=== PATIENT | female | born 1955 | race Caucasian/White ===

== ENCOUNTER 2017-08-31 05:52 | Observation (INO) | payer BC ==
[2017-08-30 09:32] LABS: BASOPHILS % 0.5 % (0.0-1.0); EOSINOPHILS # (AUTO) 0.1 (0.0-0.4); EOSINOPHILS % 0.9 % (0.0-6.0); HEMATOCRIT 39.1 % (34.2-44.1); HEMOGLOBIN 12.9 g/dL (12.0-16.0); LYMPHOCYTES # (AUTO) 1.5 (1.0-3.2); LYMPHOCYTES % 18.9 % (18.0-39.1); MEAN CORPUSCULAR HEMOGLOBIN 29.9 pg (28-32); MEAN CORPUSCULAR VOLUME 90.7 fL (81-99); MONOCYTES # (AUTO) 0.6 (0.2-0.8); MONOCYTES % 7.9 % (4.4-11.3); NEUTROPHILS # (AUTO) 5.7 (2.1-6.9); NEUTROPHILS % 71.4 % (38.7-80.0); PLATELET COUNT 276 x10e3/uL (140-360); RED BLOOD COUNT 4.31 x10e6/uL (3.6-5.1); RED CELL DISTRIBUTION WIDTH 13.4 % (11.7-14.4)
[2017-08-30 09:42] LABS: INR 0.86; PROTHROMBIN TIME 12.1 seconds (11.9-14.5)
[2017-08-30 09:43] LABS: PARTIAL THROMBOPLASTIN TIME 28.5 seconds (23.8-35.5)
[2017-08-30 09:49] LABS: ANION GAP 15.2 mmol/L (8-16); BLOOD UREA NITROGEN 13 mg/dL (7-26); BUN/CREATININE RATIO 15 (6-25); CALCIUM 9.6 mg/dL (8.4-10.2); CARBON DIOXIDE 27 mmol/L (22-29); CHLORIDE 106 mmol/L (98-107); CREATININE, SERUM 0.84 mg/dL (0.57-1.11); EST GLOMERULAR FILTRATION RATE > 60 ML/MIN (60-); GLUCOSE 80 mg/dL (74-118); POTASSIUM 4.2 mmol/L (3.5-5.1); SODIUM 144 mmol/L (136-145)
--- NOTE | 2017-08-30 11:31 | Diagnostic Imaging Report ---
PROCEDURE: Frontal and lateral views of the chest. COMPARISON: 08/05/15 INDICATIONS: PRE OPERATIVE CHEST X-RAY FOR BACK SURGERY FINDINGS: Lines/tubes: None. Lungs: The lungs are well inflated and clear. There is no evidence of pneumonia or pulmonary edema. Pleura: There is no pleural effusion or pneumothorax. Heart and mediastinum: The heart and the mediastinum are normal. Bones: No acute bony abnormality. IMPRESSION: 1. No acute cardiopulmonary disease. Dictated by: Parminder Goode M.D. on 08/30/2017 at 11:40 Electronically approved by: Parminder Goode M.D. on 08/30/2017 at 11:40
[~2017-08-31] VITALS: Ht 160 cm; Wt 64.4 kg
[~2017-08-31 05:52] MED LIST: CYMBALTA20 MG PO; LAMOTRIGINE25 M2 PO; PANTOPRAZOLE SO40 MG PO; PROZAC40 MG PO; VIVELLE-DOT1 EAC1 TD; ZOCOR20 MG PO
--- OUTSIDE RECORDS SUMMARY | 2017-08-31 05:54 | XMS REPORT ---
Author Author [facility] Address Unknown Phone Unavailable Care Team Providers Care Registered Veterinary Technician Name Role Phone GALA MUKHERJEE Unavailable Unavailable Problems This patient has no known problems. Allergies, Adverse Reactions, Alerts This patient has no known allergies or adverse reactions. Medications This patient has no known medications. Results Test Description Test Time Test Comments Text Results Atomic Results Result Comments CHEST 2 VIEWS [place] [address] Patient Name: HEAVENLY HERRERA MR #: [id number] : 1955 Age/Sex: 62/F Req #: [id number] Adm Physician: Ordered by: GALA MUKHERJEE MD Report #: [id number] Location: OR Room/Bed: Procedure: [id number] DX/CHEST 2 VIEWS Exam Date: 08/30/17 Exam Time: 0945 REPORT STATUS: Signed PROCEDURE: Frontal and lateral views of the chest. COMPARISON: 08/05/15 INDICATIONS: PRE OPERATIVE CHEST X- RAY FOR BACK SURGERY FINDINGS: Lines/tubes: None. Lungs: The lungs are well inflated and clear. There is no evidence of pneumonia or pulmonary edema. Pleura: There is no pleural effusion or pneumothorax. Heart and mediastinum: The heart and the mediastinum are normal. Bones: No acute bony abnormality. IMPRESSION: 1. No acute cardiopulmonary disease. Dictated by: Parminder Goode M.D. on 08/30/2017 at 11:40 Electronically approved by: Parminder Goode M.D. on 08/30/2017 at 11:40 Dictated By: PARMINDER GOODE MD [id number] Transcribed By: BC on 08/30/17 1140 COPY TO: GALA MUKHERJEE MD
[2017-08-31] MEDS ORDERED: GELATIN SPONGE SZ 100 ONE (06:45)
[2017-08-31] MEDS ORDERED: LIDOCAINE 1% W/EPINEPHRINE 20 ML VIAL ONE (06:45)
[2017-08-31] MEDS ORDERED: BACITRACIN 50,000 UNIT VIAL ONE (06:45)
[2017-08-31] MEDS ORDERED: THROMBIN FOR SOLN 5,000 UNIT VIAL ONE (06:45)
[2017-08-31] MEDS ORDERED: ACETAMINOPHEN 1000 MG/100 ML 100 ML IV ONE (07:11)
[2017-08-31] MEDS ORDERED: LIDOCAINE HCL (LTA) 4 ML SOLN ONE (07:11)
[2017-08-31] MEDS ORDERED: METOCLOPRAMIDE HCL 10 MG/2ML VIAL ONE (07:16)
[2017-08-31] MEDS ORDERED: FAMOTIDINE 20 MG/2 ML VIAL IV ONE (07:16)
[2017-08-31] MEDS ORDERED: SCOPOLAMINE 1.5 MG PATCH ONE (07:31)
[2017-08-31] MEDS ORDERED: VANCOMYCIN 1GM/NS 250 ML 250 ML ONE (07:32)
[2017-08-31] MEDS ORDERED: PROMETHAZINE HCL (IM) 25 MG/ML VIAL IM PRN (09:15)
[2017-08-31] MEDS ORDERED: MAGNESIUM/ALUMINUM/SIMETHICONE 30 ML UDC PO PRN (09:15)
[2017-08-31] MEDS ORDERED: ACETAMINOPHEN 325 MG TAB PO PRN (09:15)
[2017-08-31] MEDS ORDERED: CARISOPRODOL 350 MG TAB PO PRN (09:15)
[2017-08-31] MEDS ORDERED: MORPHINE SULFATE 5 MG/ML VIAL IM PRN (09:15)
[2017-08-31] MEDS ORDERED: CEPACOL SORE THROAT LOZENGES PO PRN (09:15)
[2017-08-31] MEDS ORDERED: OXYCODONE/ACETAMINOPHEN 5-325 1 EACH TABLET PO PRN (09:15)
[2017-08-31] MEDS ORDERED: ONDANSETRON HCL INJ 2 MG/ML VIAL IV PRN (09:15)
[2017-08-31] MEDS: HYDROMORPHONE 2MG/ML INJ IV PRN ×2 (10:56→23:26)
[2017-08-31] MEDS: LACTATED RINGER'S 1,000 ML IV SCH ×2 (11:00→16:38)
[2017-08-31 11:17] VITALS: BP 150/87
--- NOTE | 2017-08-31 11:22 | Operative Report ---
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 POSTOPERATIVE DIAGNOSIS: C6-7 spondylosis and disk herniation with radiculopathy, M50.123. PROCEDURES 1. C6-7 anterior cervical diskectomy, microsurgical osteophyte resection and allograft fusion, 18501. 2. Preparation of [employer] cortical cancellous allograft, 95388. 3. C6-7 anterior cervical plating with Synthes ZPN plate, 15778. ANESTHESIA: General. INDICATIONS: The patient is a woman who presents with C6-7 disk herniation, spondylosis and foraminal stenosis with left C7 radiculopathy. She was taken to the operating room for anterior cervical decompression and fusion. DETAILS OF PROCEDURE: After the induction of general anesthesia, the patient was placed on the operating table in the supine position. The right side of her neck was prepped and draped in a sterile fashion. The fluoroscopic C-arm was positioned in cross-table lateral orientation. A transverse incision was created on the right side of the neck superimposed on the C6-7 disk space as determined by fluoroscopy. The platysma was divided in line with the incision. A subplatysmal dissection was carried out. An avascular plane of dissection was developed medial to the sternocleidomastoid muscle and was followed medial to the carotid sheath to the anterior border of the cervical spine. The deep cervical fascia was opened. The esophagus was retracted to the left. The attachments of the longus coli muscles to the anterolateral aspects of the vertebral bodies of C6 and C7 were divided. The anterior longitudinal ligament was resected. Ray posts were inserted into C6 and C7. The Ray distractor was used to distract the disk space. The anterior annulus of the disk was incised a #11 blade. The contents of the disk were evacuated with angled curets and pituitary rongeurs. The posterior osteophytes were meticulously drilled with a 2-mm cutting bur on a high-speed drill until they were completely removed. The posterior annulus of the disk, herniated disk material, and the posterior longitudinal ligament were resected layer by layer until the dura was fully exposed and decompressed. The medial aspects of the uncinate processes were resected bilaterally to further expose and decompress the origins of the corresponding nerve roots. After satisfactory decompression had been achieved, the endplates were prepared for fusion. A piece of MTF cortical cancellous allograft measuring 8 mm in thickness was selected and prepared in saline and loaded onto a Synthes ZPN plate. The construct was inserted into the disk space under distraction and fluoroscopic guidance. The distraction was released, and the distraction posts were removed. The plates was screwed to the endplates of C6 and C7 with 2 pairs of 14-mm screws. All screws were locked. The wound was irrigated with Bacitracin solution and closed with 3-0 Vicryl suture and 4-0 Monocryl suture. Steri-Strips and dressing were applied. The patient was awakened and extubated in the postanesthesia care unit in stable condition. No intraoperative complications were encountered. Estimated blood loss was 10 mL. Job#: [id number]
[2017-08-31 11:38] VITALS: BP 148/83
[2017-08-31 15:22] VITALS: BP 125/71
[2017-08-31] MEDS: VANCOMYCIN 1GM/NS 250 ML 250 ML IV SCH (17:22)
[2017-08-31] MEDS ORDERED: DEXAMETHASONE SOD PHOS INJ 4 MG/ML VIAL ONE (18:24)
[2017-08-31] MEDS ORDERED: PROPOFOL IV EMULSION 10 MG/ML 20 ML VIAL ONE (18:24)
[2017-08-31] MEDS ORDERED: ONDANSETRON HCL INJ 2 MG/ML VIAL ONE (18:24)
[2017-08-31] MEDS ORDERED: ROCURONIUM BROMIDE 10 MG/ML 5ML VIAL ONE (18:24)
[2017-08-31] MEDS ORDERED: LIDOCAINE HCL 2% LOCAL INJ 5 ML SDV VIAL INJ ONE (18:24)
[2017-08-31] MEDS ORDERED: NEOSTIGMINE 5 MG/5ML SYR ONE (18:24)
[2017-08-31] MEDS ORDERED: GLYCOPYRROLATE INJ 1MG/ 5 ML SYR ONE (18:24)
[2017-08-31] MEDS ORDERED: SEVOFLURANE INHAL SOLN 250 ML PEN BTL ONE (18:24)
[2017-08-31] MEDS ORDERED: MIDAZOLAM HCL 2 MG/2 ML VIAL ONE (18:29)
[2017-08-31] MEDS ORDERED: FENTANYL CITRATE/PF 100MCG/2 ML INJ ONE (18:29)
[2017-08-31 19:10] VITALS: BP 111/69
[2017-08-31 19:55] VITALS: BP 111/69
[2017-08-31] MEDS ORDERED: ZOLPIDEM TARTRATE 5 MG TAB PO PRN (21:00)
[2017-09-01] VITALS: BP 133/71
[2017-09-01 04:00] VITALS: BP 115/69
[2017-09-01] MEDS: VANCOMYCIN 1GM/NS 250 ML 250 ML IV SCH (06:17)
--- NOTE | 2017-09-01 07:12 | Diagnostic Imaging Report ---
Exam: Cervical spine, 2 views History: Recent surgery Comparison: None. Findings: See impression Impression: 1. Postsurgical changes related to anterior fusion of C4 and C5 with an intervertebral disc spacer placement at C6-7. Surgical hardware is intact. No displaced fracture or malalignment. Mild prevertebral soft tissue swelling in keeping with recent surgery. Signed by: Dr. Shlomo Gates M.D. on 09/01/2017 7:09 AM
[2017-09-01 08:14] VITALS: BP 127/61
[2017-09-01] MEDS ORDERED: NORCO 7.5-3251 EACH PO (08:55)
== END 2017-09-01 09:28 | disposition home or self-care (01) ==
LOC: OR 05:52 → IMCU 10:42
PROVIDERS: ADMIT Neurological Surgery; ATTEND Neurological Surgery
DX: M50.123 Cervical disc disorder at C6-C7 level with radiculopathy (principal); M47.22 Other spondylosis with radiculopathy, cervical region; E78.5 Hyperlipidemia, unspecified
CPT/HCPCS: 20931; 22551; 22845; 36415; 71046; 72040; 77003; 80048; 85025; 85610; 85730; 86850; 86900; 88304; 93005; G0378 ×2; J1100; J1170; J2001; J2250; J2405; J2765; J3370 ×2; J7120

== ENCOUNTER → 2017-09-28 | Outpatient (CLI) | payer BC ==
[~2017-09-28] MED LIST changes: +NORCO 7.5-3251 EACH PO
--- NOTE | 2017-09-28 08:48 | Diagnostic Imaging Report ---
PROCEDURE:SPINE CERVICAL AP\T\LAT FLEX\T\EXT TECHNIQUE:AP, lateral, flexion and extension views cervical spine INDICATION:Postoperative evaluation COMPARISON:None. FINDINGS: Cervical spine evaluated from the skull base through the cervicothoracic junction. Complete ankylosis of C4, C5 and C6. Recent C6-C7 intervertebral body fusion without evidence of inducible malalignment or interval change from September 01. Regional soft tissue swelling is resolved. The regional skeleton is intact. 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 Recent C6-C7 interbody fusion without acute abnormality or inducible malalignment. Dictated by: Vladislav Sen M.D. on 09/28/2017 at 8:48 Electronically approved by: Vladislav Sen M.D. on 09/28/2017 at 8:48
== END ==
LOC: RAD 08:12
PROVIDERS: ATTEND Neurological Surgery
DX: M50.20 Other cervical disc displacement, unspecified cervical region (principal); Z98.1 Arthrodesis status
CPT/HCPCS: 72050